=== PATIENT | female | born 1995 | race Two or more races ===

== ENCOUNTER 2020-11-18 19:03 | Emergency (ER) | payer OTHER ==
[~2020-11-18] VITALS: Ht 170.2 cm; Wt 57.2 kg
--- NOTE | 2020-11-18 20:08 | NUR ---
PRSENETED TO THE ER FOR C/O L FLANK PAIN, FEVER AND ELEVATED WBC [facility]. PT WAS PLACED IN BED 8 ER, AFEBRILE AT THIS TIME. REPORTED HAD UNKNOWN AMOUNT OF TYLENOL 3 HOURS NURSERY RN. WILL CONT TO MONITOR
[2020-11-18] MEDS ORDERED: CEFTRIAXONE 1GM BAG (ER ONLY) 50 ML IV ONE ×2 (20:20→20:30)
[2020-11-18 20:26] LABS: BASOPHILS % (AUTO) 0.2 % (0.0-2.0); HEMATOCRIT 36 % (33-45); HEMOGLOBIN 11.7 g/dL (11.5-14.8); LYMPHOCYTES # (AUTO) 0.8 K/uL (0.8-4.8); LYMPHOCYTES % (AUTO) 4.7 % (20.0-44.0); MEAN CORPUSCULAR HGB CONC 33 g/dl (31.0-36.0); MEAN CORPUSCULAR VOLUME 97 fL (82-100); MONOCYTES # (AUTO) 0.8 K/uL (0.1-1.30); MONOCYTES % (AUTO) 5.1 % (2.0-12.0); NEUTROPHILS # (AUTO) 14.7 K/uL (1.8-8.9); PLATELET COUNT (AUTO) 168 K/uL (150-450); RED BLOOD CELL COUNT(AUTO) 3.69 MIL/uL (4.0-5.2); WHITE BLOOD COUNT (AUTO) 16.3 K/uL (4.3-11.0)
[2020-11-18] MEDS ORDERED: IV NS 0.9% 1,000 ML BAG IV ONE (20:30)
[2020-11-18 20:34] LABS: BILIRUBIN,URINE NEGATIVE (NEGATIVE); COLOR,URINE YELLOW (YELLOW); LEUKOCYTE ESTERASE ,URINE SMALL (NEGATIVE); NITRITE, URINE NEGATIVE (NEGATIVE); PROTEIN,URINE NEGATIVE (NEGATIVE); UGLUCOSE NEGATIVE (NEGATIVE); UROBILINOGEN,URINE 0.2 EU/dL (0.2)
[2020-11-18 20:40] LABS: BACTERIA,URINE 1+ /HPF (None Seen); RBC,URINE 0-2 /HPF (0-2); SQUAMOUS EPITHELIAL CELL,UR 0-2 /HPF (None Seen)
[2020-11-18 20:43] LABS: POTASSIUM 3.8 mmol/L (3.5-5.1)
[2020-11-18 20:49] LABS: ALBUMIN 3.2 g/dL (3.4-5.0); BILIRUBIN,DIRECT 0.2 mg/dL (0.0-0.2); BILIRUBIN,TOTAL 0.6 mg/dL (0.2-1.0); TOTAL PROTEIN, SERUM 7.4 g/dL (6.4-8.2)
[2020-11-18] MEDS ORDERED: NITR100C6 PO (21:01)
--- NOTE | 2020-11-18 21:12 | NUR ---
pt is medically stable for d/c. IV removed. Catheter intact and site benign. Pressure and 4x4 applied to site. No bleeding noted.Patient discharged to home in stable condition. Written and verbal after care instructions given. Patient verbalizes understanding of instruction.
[2020-11-18 21:17] VITALS: BP 131/74
== END 2020-11-18 21:22 | disposition home or self-care (01) ==
LOC: ER 19:06
DX: N12 Tubulo-interstitial nephritis, not specified as acute or chronic (principal)
CPT/HCPCS: 36415; 71045; 80048; 80076; 81001; 83605; 84145; 84703; 85025; 87040 ×2; 87086; 96365; 99284; J0696; J7030